=== PATIENT | female | born 1970 | race Caucasian/White ===

== ENCOUNTER 2017-07-19 16:25 | Emergency (ER) | payer SELFPAY ==
[~2017-07-19] VITALS: Ht 165.1 cm; Wt 76.5 kg
[~2017-07-19 16:25] MED LIST: DOXY100C2 PO
[2017-07-19 16:27] VITALS: TEMP 36.5; Ht 165.1 cm; Wt 76.5 kg
[2017-07-19] MEDS ORDERED: KETOROLAC TROMETHAMINE 30 MG/ML VIAL IV STA (16:44)
[2017-07-19 16:57] LABS: BASO % 0.6 %; BASO ABS # 0.06 K/uL (0-0.2); COMPLETE YES; EOS % 1.6 %; HEMATOCRIT 46.6 % (37-47); IG% 0.6 %; LYMPH % 33.6 %; LYMPH ABS # 3.25 K/uL (1.2-3.4); MEAN CELL VOLUME 98.9 fL (80-100); MEAN CORPUSCULAR HEMOGLOBIN 33.3 pg (25-34); MEAN CORPUSCULAR HGB CONC 33.7 g/dl (32-36); MEAN PLATELET VOLUME 9.2 fL (7.4-10.4); MONO % 6.5 %; NEUT % 57.1 %; PLATELET COUNT 254 K/uL (130-400); RED BLOOD COUNT 4.71 M/uL (4.2-5.4); WHITE BLOOD COUNT 9.66 K/uL (4.8-10.8)
[2017-07-19 17:05] LABS: POINT OF CARE TROPONIN I < 0.030 ng/ml (0-0.045)
--- NOTE | 2017-07-19 17:05 | DIAGNOSTIC IMAGING REPORT ---
CHEST ONE VIEW PORTABLE HISTORY: 47 years-old Female CHEST PAIN COMPARISON: Chest radiograph 11/15/2016 TECHNIQUE: Portable upright AP view of the chest FINDINGS: Cardiomediastinal and hilar silhouettes are within normal limits. No pneumothorax, pleural effusion or focal airspace consolidation. No overt pulmonary edema. The bones are grossly intact. IMPRESSION: No acute cardiopulmonary process. The above report was generated using voice recognition software. It may contain grammatical, syntax or spelling errors. Electronically signed by: Eduardo Kebede M.D. 07/19/2017 5:04 PM Dictated Date/Time: 07/19/2017 5:03 PM
[2017-07-19 17:15] LABS: ALT/SGPT 20 U/L (12-78); AST/SGOT 14 U/L (15-37); BLOOD UREA NITROGEN 8 mg/dl (7-18); BUN/CREATININE RATIO 14.1 (10-20); CALCIUM 8.7 mg/dl (8.5-10.1); CARBON DIOXIDE 25 mmol/L (21-32); CHLORIDE 107 mmol/L (98-107); GLUCOSE 79 mg/dl (70-99); POTASSIUM 3.8 mmol/L (3.5-5.1); SODIUM 139 mmol/L (136-145)
[2017-07-19 17:20] LABS: ALKALINE PHOSPHATASE 99 U/L (45-117); CKMB/CK RATIO 1.3 (0-3.0); PREG INTERNAL NEGATIVE QC NEG CLEAR BACKGROUND; PREG INTERNAL POSITIVE QC POS CONTROL LINE
--- NOTE | 2017-07-19 18:50 | EMERGENCY ROOM VISIT NOTE ---
History Report prepared by Jose: Liseth Paz Under the Supervision of: Dr. Mateo Tejada M.D. First contact with patient: 16:31 Chief Complaint: CHEST PAIN Stated Complaint: CHEST HURTS Nursing Triage Summary: Pt reports right sided chest pain x 2 days. No known injury. Right side of neck and back pain. Mild SOB. Lightheaded. Pain described as sharp. Denies calf pain. History of Present Illness The patient is a 47 year old female who presents to the Emergency Room with complaints of intermittent chest pain starting a few days ago. She describes the pain as sharp. She states that each episode lasts a few minutes. The patient notes it is worse when she breathes. The patient complains of shortness of breath and a cough. The patient denies any injury, nausea, vomiting, fever, chance of , being on blood thinners, ever having a stress test, having asthma, and having diabetes. The patient notes a history of blood clots in her leg and an allergy to bee stings. Source of History: patient, spouse/significant other Onset: a few days ago Position: chest Quality: sharp Timing: intermittent Modifying Factors (Worsening): breathing Associated Symptoms: + cough, + SOB, No fevers, No nausea, No vomiting Note: The patient denies any injury, chance of , being on blood thinners, ever having a stress test, having asthma, and having diabetes. Review of Systems See HPI for pertinent positives & negatives. A total of 10 systems reviewed and were otherwise negative. Past Medical & Surgical Medical Problems: (1) Acute bronchitis (2) Arm pain, right (3) Asthma (4) Bee sting allergy (5) Cellulitis of left foot (6) Deep venous thrombosis of lower extremity (7) Diabetes (8) Heart disease (9) Hematuria (10) Hx of blood clots (11) Hypertension (12) Lumbago (13) Right lumbar radiculitis (14) Right tennis elbow (15) Tobacco Use Disorder Surgical Problems: (1) Fracture of mandible Old medical records were reviewed. Nurse's notes were reviewed and I agree with. Family History Blood clots Diabetes mellitus FHx: gallbladder disease FHx: heart disease Hypertension Kidney disease Kidney stones Seizures Social History Smoking Status: Current Every Day Smoker Alcohol Use: occasionally Marital Status: Housing Status: lives with family Occupation Status: employed Current/Historical Medications No Active Prescriptions or Reported Meds Allergies Coded Allergies: BEE STING (Unverified Allergy, Unknown, ., 07/19/17) Latex1 -Allergic Contact Dermititis (Verified Allergy, Unknown, 07/19/17) Physical Exam Vital Signs Date Time Temp Pulse Resp B/P (MAP) Pulse Ox O2 Delivery O2 Flow Rate FiO2 07/19/17 20:43 68 18 106/79 98 07/19/17 18:58 65 16 116/72 97 Room Air 07/19/17 16:27 36.5 83 18 132/83 95 Room Air Physical Exam General: Well developed well nourished in no acute distress, breathing comfortably on room air. Normal speech. Mildly uncomfortable middle aged female. HEENT: Normal cephalic atraumatic. Pupils are equal round and reactive to light. Extraocular movements are intact. Oropharynx is pink with moist mucous membranes. No swelling of the mouth lips or tongue. Neck: Supple with a midline trachea. No meningeal signs or stiffness, no JVD or bruits. No Stridor. Chest: Clear to auscultation bilaterally. No wheezes or rhonchi. No increased work of breathing. Reproducible tenderness in right chest. Heart: regular rate and rhythm. Abdomen: Soft nontender, nondistended without rebound guarding or rigidity. Extremities: No cyanosis clubbing or edema. No calf tenderness or assymetry Spine/Back. Non tender to palpation. No CVA tenderness Skin: Good turgor without rashes. Neurologic exam: Cranial nerves two through 12 are intact. Motor and sensation are intact and symmetrical throughout. Medical Decision & Procedures ER Provider Diagnostic Interpretation: Radiology results as stated below per my review and radiologist interpretation: CHEST ONE VIEW PORTABLE HISTORY: 47 years-old Female CHEST PAIN COMPARISON: Chest radiograph 11/15/2016 TECHNIQUE: Portable upright AP view of the chest FINDINGS: Cardiomediastinal and hilar silhouettes are within normal limits. No pneumothorax, pleural effusion or focal airspace consolidation. No overt pulmonary edema. The bones are grossly intact. IMPRESSION: No acute cardiopulmonary process. The above report was generated using voice recognition software. It may contain grammatical, syntax or spelling errors. Electronically signed by: Eduardo Kebede M.D. 07/19/2017 5:04 PM Dictated Date/Time: 07/19/2017 5:03 PM CHEST FOR PE) ANGIO WITH CT DOSE: 593.78 mGycm HISTORY: 47 years-old Female presents with acute chest pain. TECHNIQUE: Multiple CTA images of the chest were obtained after the intravenous administration of 116 ml Optiray 320. Coronal and sagittal MIPS were obtained from the axial data set and were submitted for review. A dose lowering technique was utilized adhering to the principles of ALARA. COMPARISON: CTA of the chest 05/04/2016 FINDINGS: CTA: There is adequate opacification of the pulmonary arteries to the level of the subsegmental branches without convincing evidence of acute pulmonary embolism. The thoracic aorta is normal in course and caliber without dissection or aneurysm. There is mild degree of mixed plaquing involving the aortic arch without high-grade stenosis.Heart size is normal. CT CHEST: Nodular thyroid is seen without dominant nodule. Mildly prominent 1.3 x 0.8 cm right hilar lymph node is seen, nonspecific and unchanged from comparison. No pathologic adenopathy by CT size criteria. Mild subpleural lucencies at the lung apices and bases are again seen suggesting bleb formation or paraseptal emphysema. No pneumothorax or pleural effusion. There is minimal dependent bibasilar atelectasis. The central airways are patent with minimal mucosal secretions along the thoracic trachea. Gallstones are seen layering within the gallbladder lumen. No CT evidence of acute cholecystitis. Soft tissues are unremarkable. The bones appear intact. IMPRESSION: 1. No acute cardiopulmonary process, specifically no acute aortic pathology or evidence of pulmonary thromboembolic disease. 2. Cholelithiasis without CT evidence of acute cholecystitis. 3. Unchanged subpleural lucencies within the lung apices suggesting bleb formation or mild paraseptal emphysema. The above report was generated using voice recognition software. It may contain grammatical, syntax or spelling errors. Electronically signed by: Eduardo Kebede M.D. 07/19/2017 8:14 PM Dictated Date/Time: 07/19/2017 8:05 PM Laboratory Results 07/19/17 16:45 Red Blood Count 4.71, Mean Corpuscular Volume 98.9, Mean Corpuscular Hemoglobin 33.3, Mean Corpuscular Hemoglobin Concent 33.7, Mean Platelet Volume 9.2, Neutrophils (%) (Auto) 57.1, Lymphocytes (%) (Auto) 33.6, Monocytes (%) (Auto) 6.5, Eosinophils (%) (Auto) 1.6, Basophils (%) (Auto) 0.6, Neutrophils # (Auto) 5.51, Lymphocytes # (Auto) 3.25, Monocytes # (Auto) 0.63, Eosinophils # (Auto) 0.15, Basophils # (Auto) 0.06 07/19/17 16:45 Test 07/19/17 16:45 07/19/17 16:47 White Blood Count 9.66 K/uL (4.8-10.8) Red Blood Count 4.71 M/uL (4.2-5.4) Hemoglobin 15.7 g/dL (12.0-16.0) Hematocrit 46.6 % (37-47) Mean Corpuscular Volume 98.9 fL (80-100) Mean Corpuscular Hemoglobin 33.3 pg (25-34) Mean Corpuscular Hemoglobin Concent 33.7 g/dl (32-36) Platelet Count 254 K/uL (130-400) Mean Platelet Volume 9.2 fL (7.4-10.4) Neutrophils (%) (Auto) 57.1 % Lymphocytes (%) (Auto) 33.6 % Monocytes (%) (Auto) 6.5 % Eosinophils (%) (Auto) 1.6 % Basophils (%) (Auto) 0.6 % Neutrophils # (Auto) 5.51 K/uL (1.4-6.5) Lymphocytes # (Auto) 3.25 K/uL (1.2-3.4) Monocytes # (Auto) 0.63 K/uL (0.11-0.59) Eosinophils # (Auto) 0.15 K/uL (0-0.5) Basophils # (Auto) 0.06 K/uL (0-0.2) RDW Standard Deviation 46.6 fL (36.4-46.3) RDW Coefficient of Variation 12.8 % (11.5-14.5) Immature Granulocyte % (Auto) 0.6 % Immature Granulocyte # (Auto) 0.06 K/uL (0.00-0.02) Anion Gap 7.0 mmol/L (3-11) Est Creatinine Clear Calc Drug Dose 118.6 ml/min Estimated GFR () 125.8 Estimated GFR (Non- 108.5 BUN/Creatinine Ratio 14.1 (10-20) Calcium Level 8.7 mg/dl (8.5-10.1) Total Bilirubin 0.3 mg/dl (0.2-1) Direct Bilirubin < 0.1 mg/dl (0-0.2) Aspartate Amino Transf (AST/SGOT) 14 U/L (15-37) Alanine Aminotransferase (ALT/SGPT) 20 U/L (12-78) Alkaline Phosphatase 99 U/L (45-117) Total Creatine Kinase 60 U/L (26-192) Creatine Kinase MB 0.8 ng/ml (0.5-3.6) Creatine Kinase MB Ratio 1.3 (0-3.0) Total Protein 7.8 gm/dl (6.4-8.2) Albumin 3.8 gm/dl (3.4-5.0) Lipase 122 U/L (73-393) Human Chorionic Gonadotropin, Qual NEG (NEG) Bedside D-Dimer 241 ng/mlFEU (0-450) Bedside Troponin I < 0.030 ng/ml (0-0.045) Laboratory studies as stated above per my review. Medications Administered Medications (Trade) Dose Ordered Sig/Tesfaye Route Start Time Stop Time Status Last Admin Dose Admin Ketorolac Tromethamine (Toradol Inj) 30 mg NOW STAT IV 07/19/17 16:44 07/19/17 16:46 DC 07/19/17 17:21 30 MG ECG Indication: chest pain Rate (beats per minute): 73 Rhythm: normal sinus Findings: no acute ischemic change, no ectopy Comparison ECG Date: 09/15/2016 Change: no significant change ED Course 1638: Past medical records reviewed. The patient was evaluated in room C2B, and a complete history and physical examination were performed. 1644: Ordered Toradol Inj 30 mg IV. 1735: I reevaluated the patient and she states that the Toradol helped. 180: I reevaluated the patient and explained the risks and benefits of CT. She would like to proceed with a CT. 2024: Upon reevaluation, the patient is resting comfortably. I discussed the results and treatment plan with her. She verbalized agreement of the treatment plan. The patient was discharged home. Medical Decision Differential diagnoses include PE, pneumonia, acute coronary syndrome, costochondritis, electrolyte abnormality, metabolic abnormality. This patient comes in as described above. She's had right sided chest pain and it is pleuritic and reproducible. She has a history of this and was seen for similar episode last summer. IV access established and she was given Toradol 30 mg IV and this seemed to help. EKG does not suggest acute coronary syndrome or arrhythmia. Her troponin is not elevated. I do this likely cardiac her symptoms are atypical limited on since yesterday with a normal EKG and troponin today. Chest x-ray does not show pneumonia or pneumothorax or CHF. Her d- dimer was negative and this makes PE highly unlikely however she is a little bit higher risk given the fact that she has had a history of a DVT. I explained the risks and benefits of a CT of her chest. The patient and her freely consented. There is no evidence of PE or other acute pathology explaining her symptoms. She has of gallstones but no acute cholecystitis and clinically does not have symptoms to suggest that. I think this is musculoskeletal/costochondritis it is reproducible. She should use anti- inflammatory she should rest and drink plenty fluids return if: increasing pain , shortness of breath, worsening ofsymptoms, any new problems or concerns. I recommend that she follow up with her regular doctor this week for recheck. Impression Primary Impression: Right-sided chest pain Additional Impression: Costochondritis Scribe Attestation The scribe's documentation has been prepared under my direction and personally reviewed by me in its entirety. I confirm that the note above accurately reflects all work, treatment, procedures, and medical decision making performed by me. Departure Information Dispostion Home / Self-Care Prescriptions No Active Prescriptions or Reported Meds Referrals No Doctor, Assigned (PCP) Forms Call Back Authorization, HOME CARE DOCUMENTATION FORM, IMPORTANT VISIT INFORMATION Patient Instructions My [facility] Additional Instructions Rest Drink plenty of fluids Use Ibuprofen 400 mg every 6 hours as needed. Take with food REturn if: worsening of symptoms, fever, increasing pain, shortness of breath, any new problems or concerns Follow-up with your doctor this week for recheck Problem Qualifiers
[2017-07-19] MEDS ORDERED: OPTIRAY 320 IV PRN (19:15)
--- NOTE | 2017-07-19 20:15 | DIAGNOSTIC IMAGING REPORT ---
(CHEST FOR PE) ANGIO WITH CT DOSE: 593.78 mGycm HISTORY: 47 years-old Female presents with acute chest pain. TECHNIQUE: Multiple CTA images of the chest were obtained after the intravenous administration of 116 ml Optiray 320. Coronal and sagittal MIPS were obtained from the axial data set and were submitted for review. A dose lowering technique was utilized adhering to the principles of ALARA. COMPARISON: CTA of the chest 05/04/2016 FINDINGS: CTA: There is adequate opacification of the pulmonary arteries to the level of the subsegmental branches without convincing evidence of acute pulmonary embolism. The thoracic aorta is normal in course and caliber without dissection or aneurysm. There is mild degree of mixed plaquing involving the aortic arch without high-grade stenosis.Heart size is normal. CT CHEST: Nodular thyroid is seen without dominant nodule. Mildly prominent 1.3 x 0.8 cm right hilar lymph node is seen, nonspecific and unchanged from comparison. No pathologic adenopathy by CT size criteria. Mild subpleural lucencies at the lung apices and bases are again seen suggesting bleb formation or paraseptal emphysema. No pneumothorax or pleural effusion. There is minimal dependent bibasilar atelectasis. The central airways are patent with minimal mucosal secretions along the thoracic trachea. Gallstones are seen layering within the gallbladder lumen. No CT evidence of acute cholecystitis. Soft tissues are unremarkable. The bones appear intact. IMPRESSION: 1. No acute cardiopulmonary process, specifically no acute aortic pathology or evidence of pulmonary thromboembolic disease. 2. Cholelithiasis without CT evidence of acute cholecystitis. 3. Unchanged subpleural lucencies within the lung apices suggesting bleb formation or mild paraseptal emphysema. The above report was generated using voice recognition software. It may contain grammatical, syntax or spelling errors. Electronically signed by: Eduardo Kebede M.D. 07/19/2017 8:14 PM Dictated Date/Time: 07/19/2017 8:05 PM
[2017-07-19 20:43] VITALS: BP 106/79; PULSE 68; O2SAT 98
== END 2017-07-19 20:47 | disposition home or self-care (01) ==
LOC: C.EDB 16:25 → C.EDC 20:47
DX: R07.9 Chest pain, unspecified (principal); M94.0 Chondrocostal junction syndrome [Tietze]; Z86.718 Personal history of other venous thrombosis and embolism; J45.909 Unspecified asthma, uncomplicated; E11.9 Type 2 diabetes mellitus without complications; I11.9 Hypertensive heart disease without heart failure; M54.16 Radiculopathy, lumbar region; F17.210 Nicotine dependence, cigarettes, uncomplicated; Z82.49 Family history of ischemic heart disease and other diseases of the circulatory system; Z83.79 Family history of other diseases of the digestive system; Z84.1 Family history of disorders of kidney and ureter

== ENCOUNTER 2018-01-18 11:23 | Emergency (ER) | payer SELFPAY ==
[~2018-01-18] VITALS: Ht 165.1 cm; Wt 76.2 kg
[2018-01-18 11:34] VITALS: TEMP 36.4; Ht 165.1 cm; Wt 76.2 kg
[2018-01-18] MEDS ORDERED: SODIUM CHLORIDE 0.9% 1000ML 1,000 ML IV STA (12:09)
[2018-01-18 12:40] LABS: BASO % 0.5 %; BASO ABS # 0.07 K/uL (0-0.2); EOS % 0.7 %; EOS ABS # 0.09 K/uL (0-0.5); HEMATOCRIT 46.4 % (37-47); HEMOGLOBIN 15.6 g/dL (12.0-16.0); IG# 0.05 K/uL (0.00-0.02); LYMPH % 15.8 %; LYMPH ABS # 2.07 K/uL (1.2-3.4); MEAN CELL VOLUME 98.3 fL (80-100); MEAN CORPUSCULAR HEMOGLOBIN 33.1 pg (25-34); MEAN CORPUSCULAR HGB CONC 33.6 g/dl (32-36); MEAN PLATELET VOLUME 9.5 fL (7.4-10.4); MONO % 6.5 %; MONO ABS # 0.85 K/uL (0.11-0.59); NEUT % 76.1 %; NEUT ABS # 10.01 K/uL (1.4-6.5); PLATELET COUNT 257 K/uL (130-400); RED CELL DISTRIBUTION WIDTH CV 12.8 % (11.5-14.5); RED CELL DISTRIBUTION WIDTH SD 46.2 fL (36.4-46.3); WHITE BLOOD COUNT 13.14 K/uL (4.8-10.8)
[2018-01-18 12:47] LABS: PTT PATIENT 26.1 SECONDS (21.0-31.0)
[2018-01-18 12:54] LABS: ALBUMIN 4.1 gm/dl (3.4-5.0); CALCIUM 8.9 mg/dl (8.5-10.1); CREATININE 0.65 mg/dl (0.60-1.20)
[2018-01-18 12:56] LABS: TOTAL PROTEIN 7.9 gm/dl (6.4-8.2)
--- NOTE | 2018-01-18 12:58 | DIAGNOSTIC IMAGING REPORT ---
ABD/PELVIS WITHOUT FOR STONE CLINICAL HISTORY: 47 years-old Female presenting with right flank pain, hematuria. TECHNIQUE: Multidetector CT of the abdomen and pelvis was performed without the use of intravenous contrast. IV contrast: None. A dose lowering technique was used consistent with the principles of ALARA (as low as reasonably achievable). COMPARISON: None. CT DOSE (mGy.cm): The estimated cumulative dose is 851.08 mGycm. FINDINGS: Manager Licensing topogram: Unremarkable. Lung bases: Minimal basilar opacities, likely atelectasis. Normal heart size. No pericardial or pleural effusion. Liver: Normal morphology. Normal density. Biliary: No gross biliary ductal dilatation allowing for noncontrast technique. Gallbladder contains gallstones. Pancreas: Normal noncontrast appearance. Spleen: Normal noncontrast appearance. Adrenal glands: Normal noncontrast appearance. Kidneys and ureters: Normal noncontrast appearance. No nephrolithiasis. No hydronephrosis. Normal ureters. Bladder: Polypoid mass arising from the right posterior lateral wall measures up to 3.7 cm in diameter. This does not appear to invade beyond the bladder wall. This is incompletely characterized without contrast. Pelvic organs: Normal noncontrast appearance. Dominant follicle noted in the left ovary. Bowel: Diverticulosis of the mid to distal sigmoid colon. The appendix is normal. No bowel obstruction. Peritoneal cavity: No free fluid or intraperitoneal gas. Lymph nodes: No gross lymphadenopathy allowing for noncontrast technique. Vasculature: Atherosclerosis of the normal caliber abdominal aorta. Abdominal wall: Small fat-containing umbilical hernia. Musculoskeletal: Normal. IMPRESSION: 1. Findings highly suspicious for bladder neoplasm. The polypoid mass along the right posterior lateral aspect does not appear to invade beyond the bladder wall. No lymphadenopathy allowing for noncontrast technique. 2. No nephrolithiasis or hydronephrosis. The report will be called/faxed according to standard departmental protocol. Electronically signed by: Naveen Erazo M.D. 01/18/2018 12:57 PM Dictated Date/Time: 01/18/2018 12:50 PM
[2018-01-18] MEDS ORDERED: CEFTRIAXONE SOD INJ 1 GM ADDVIAL IV STA (13:48)
[2018-01-18] MEDS ORDERED: SULF800T23 PO (14:44)
--- NOTE | 2018-01-18 14:45 | EMERGENCY ROOM VISIT NOTE ---
History First contact with patient: 11:58 Chief Complaint: HEMATURIA Stated Complaint: PEEING BLOOD AND CLOTS Nursing Triage Summary: urinated blood and blood clots started three days ago with burning urgency and dribbling History of Present Illness The patient is a 47 year old female who presents to the Emergency Room with complaints of hematuria 3 days. The patient states she has been dealing with urinary tract infection symptoms including urinary frequency, urinary hesitancy , and dysuria for approximately 1 week. She states 3 days ago, she noticed that she began peeing blood and does admit to passing clots. She does have a history of kidney stones which have presented similarly with hematuria. She denies any fever, but admits to chills. She admits to some right flank pain, but denies any significant back or abdominal pain. The patient has been taking Tylenol intermittently for discomfort without significant improvement in symptoms. She does not have a primary care provider, nor has she seen a urologist. The patient does admit to smoking approximately 1 pack of cigarettes per day. She denies any weakness, numbness or tingling in her lower extremities, recent falls, back injury, abdominal injury, or other concerning symptoms. Review of Systems A complete 10 point review of systems was reviewed with the patient with pertinent positives and negatives as per history of present illness. All else were negative. Past Medical/Surgical History Medical Problems: (1) Acute bronchitis (2) Arm pain, right (3) Asthma (4) Bee sting allergy (5) Cellulitis of left foot (6) Deep venous thrombosis of lower extremity (7) Diabetes (8) Heart disease (9) Hematuria (10) Hx of blood clots (11) Hypertension (12) Lumbago (13) Right lumbar radiculitis (14) Right tennis elbow (15) Tobacco Use Disorder Surgical Problems: (1) Fracture of mandible Family History Blood clots Diabetes mellitus FHx: gallbladder disease FHx: heart disease Hypertension Kidney disease Kidney stones Seizures Social History Smoking Status: Current Every Day Smoker Alcohol Use: occasionally Marital Status: Housing Status: lives with family Occupation Status: employed Current/Historical Medications Scheduled Sulfa/Trimethoprim (Bactrim Ds 800MG/160MG), 1 TAB PO BID Physical Exam Vital Signs Date Time Temp Pulse Resp B/P (MAP) Pulse Ox O2 Delivery O2 Flow Rate FiO2 01/18/18 15:02 70 16 142/83 100 01/18/18 13:31 80 18 135/82 100 Room Air 01/18/18 11:34 36.4 95 18 158/92 98 Room Air Physical Exam VITALS: Vitals are noted on the nurse's note and reviewed by myself. Vital signs stable. GENERAL: This is a 47-year-old white female, in no acute distress, nondiaphoretic, well-developed well-nourished. SKIN: The skin was without rashes, erythema, edema, or bruising. There is no tenting of the skin. Capillary reflex less than 2 seconds. HEAD: Normocephalic atraumatic. EARS: External auditory canals clear, tympanic membranes pearly loco without erythema or effusion bilaterally. EYES: Pupils equal round and reactive to light and accommodation. Conjunctivae without injection, sclerae without icterus. Extraocular movements intact. NOSE: Patent, turbinates without inflammation or discharge. No sinus tenderness. MOUTH: Mucous membranes moist. Tonsils are not enlarged. Pharynx without erythema or exudate. Uvula midline. Airway patent. Tongue does not deviate. NECK: Supple without nuchal rigidity. No lymphadenopathy. No thyromegaly. Cervical spine is nontender. No JVD. HEART: Regular rate and rhythm without murmurs gallops or rubs. LUNGS: Clear to auscultation bilaterally without wheezes, rales or rhonchi. No dullness to percussion. No retractions or accessory muscle use. ABDOMEN: Positive bowel sounds x 4. Normal tympanic percussion. Mild suprapubic and right flank tenderness on palpation. The abdomen was otherwise soft, nontender, without masses or organomegaly. Anderson sign negative. No guarding or rebound tenderness. MUSCULOSKELETAL: No muscle atrophy, erythema, or edema noted. Full range of motion without joint tenderness in all extremities. No tenderness to palpation. Normal gait. Strength 5/5 throughout. NEURO: Patient was alert and oriented to person place and time. Normal sensation to light and sharp touch. Deep tendon reflexes 2+ throughout. No focal neurological deficits. Medical Decision & Procedures ER Provider Diagnostic Interpretation: ABD/PELVIS WITHOUT FOR STONE CLINICAL HISTORY: 47 years-old Female presenting with right flank pain, hematuria. TECHNIQUE: Multidetector CT of the abdomen and pelvis was performed without the use of intravenous contrast. IV contrast: None. A dose lowering technique was used consistent with the principles of ALARA (as low as reasonably achievable). COMPARISON: None. CT DOSE (mGy.cm): The estimated cumulative dose is 851.08 mGycm. FINDINGS: Newspaper Writer topogram: Unremarkable. Lung bases: Minimal basilar opacities, likely atelectasis. Normal heart size. No pericardial or pleural effusion. Liver: Normal morphology. Normal density. Biliary: No gross biliary ductal dilatation allowing for noncontrast technique. Gallbladder contains gallstones. Pancreas: Normal noncontrast appearance. Spleen: Normal noncontrast appearance. Adrenal glands: Normal noncontrast appearance. Kidneys and ureters: Normal noncontrast appearance. No nephrolithiasis. No hydronephrosis. Normal ureters. Bladder: Polypoid mass arising from the right posterior lateral wall measures up to 3.7 cm in diameter. This does not appear to invade beyond the bladder wall. This is incompletely characterized without contrast. Pelvic organs: Normal noncontrast appearance. Dominant follicle noted in the left ovary. Bowel: Diverticulosis of the mid to distal sigmoid colon. The appendix is normal. No bowel obstruction. Peritoneal cavity: No free fluid or intraperitoneal gas. Lymph nodes: No gross lymphadenopathy allowing for noncontrast technique. Vasculature: Atherosclerosis of the normal caliber abdominal aorta. Abdominal wall: Small fat-containing umbilical hernia. Musculoskeletal: Normal. IMPRESSION: 1. Findings highly suspicious for bladder neoplasm. The polypoid mass along the right posterior lateral aspect does not appear to invade beyond the bladder wall. No lymphadenopathy allowing for noncontrast technique. 2. No nephrolithiasis or hydronephrosis. The report will be called/faxed according to standard departmental protocol. Electronically signed by: Naveen Erazo M.D. 01/18/2018 12:57 PM Dictated Date/Time: 01/18/2018 12:50 PM Laboratory Results 01/18/18 12:26 Red Blood Count 4.72, Mean Corpuscular Volume 98.3, Mean Corpuscular Hemoglobin 33.1, Mean Corpuscular Hemoglobin Concent 33.6, Mean Platelet Volume 9.5, Neutrophils (%) (Auto) 76.1, Lymphocytes (%) (Auto) 15.8, Monocytes (%) (Auto) 6.5, Eosinophils (%) (Auto) 0.7, Basophils (%) (Auto) 0.5, Neutrophils # (Auto) 10.01, Lymphocytes # (Auto) 2.07, Monocytes # (Auto) 0.85, Eosinophils # (Auto) 0.09, Basophils # (Auto) 0.07 01/18/18 12:26 Test 01/18/18 11:45 01/18/18 12:26 Urine Color BROWN Urine Appearance CLOUDY (CLEAR) Urine pH 6.0 (4.5-7.5) Urine Specific [place] 1.010 (1.000-1.030) Urine Protein 1+ (NEG) Urine Glucose (UA) NEG (NEG) Urine Ketones NEG (NEG) Urine Occult Blood 3+ (NEG) Urine Nitrite POS (NEG) Urine Bilirubin NEG (NEG) Urine Urobilinogen NEG (NEG) Urine Leukocyte Esterase TRACE (NEG) Urine RBC >30 /hpf (0-4) Urine WBC 10-30 /hpf (0-5) Urine Epithelial Cells >30 /lpf (0-5) Urine Bacteria 2+ (NEG) Urine Test NEG (NEG) White Blood Count 13.14 K/uL (4.8-10.8) Red Blood Count 4.72 M/uL (4.2-5.4) Hemoglobin 15.6 g/dL (12.0-16.0) Hematocrit 46.4 % (37-47) Mean Corpuscular Volume 98.3 fL (80-100) Mean Corpuscular Hemoglobin 33.1 pg (25-34) Mean Corpuscular Hemoglobin Concent 33.6 g/dl (32-36) Platelet Count 257 K/uL (130-400) Mean Platelet Volume 9.5 fL (7.4-10.4) Neutrophils (%) (Auto) 76.1 % Lymphocytes (%) (Auto) 15.8 % Monocytes (%) (Auto) 6.5 % Eosinophils (%) (Auto) 0.7 % Basophils (%) (Auto) 0.5 % Neutrophils # (Auto) 10.01 K/uL (1.4-6.5) Lymphocytes # (Auto) 2.07 K/uL (1.2-3.4) Monocytes # (Auto) 0.85 K/uL (0.11-0.59) Eosinophils # (Auto) 0.09 K/uL (0-0.5) Basophils # (Auto) 0.07 K/uL (0-0.2) RDW Standard Deviation 46.2 fL (36.4-46.3) RDW Coefficient of Variation 12.8 % (11.5-14.5) Immature Granulocyte % (Auto) 0.4 % Immature Granulocyte # (Auto) 0.05 K/uL (0.00-0.02) Prothrombin Time 10.7 SECONDS (9.0-12.0) Prothromb Time International Ratio 1.0 (0.9-1.1) Activated Partial Thromboplast Time 26.1 SECONDS (21.0-31.0) Partial Thromboplastin Ratio 1.0 Anion Gap 6.0 mmol/L (3-11) Est Creatinine Clear Calc Drug Dose 109.3 ml/min Estimated GFR () 122.5 Estimated GFR (Non- 105.7 BUN/Creatinine Ratio 18.2 (10-20) Calcium Level 8.9 mg/dl (8.5-10.1) Total Bilirubin 0.5 mg/dl (0.2-1) Aspartate Amino Transf (AST/SGOT) 25 U/L (15-37) Alanine Aminotransferase (ALT/SGPT) 31 U/L (12-78) Alkaline Phosphatase 105 U/L (45-117) Total Protein 7.9 gm/dl (6.4-8.2) Albumin 4.1 gm/dl (3.4-5.0) Globulin 3.8 gm/dl (2.5-4.0) Albumin/Globulin Ratio 1.1 (0.9-2) Medications Administered Medications (Trade) Dose Ordered Sig/Tesfaye Route Start Time Stop Time Status Last Admin Dose Admin Sodium Chloride 1,000 ml @ 999 mls/hr Q1H1M STAT IV 01/18/18 12:09 01/18/18 13:09 DC 01/18/18 12:09 999 MLS/HR Ceftriaxone Sodium (Rocephin Inj) 1 gm NOW STAT IV 01/18/18 13:48 01/18/18 13:49 DC 01/18/18 14:08 1 GM ED Course The patient was seen and evaluated as above. IV access obtained, labs drawn. Urine dipstick performed. The patient was given 1 L normal saline solution IV. I did offer pain medication, the patient declines. Due to the patient's symptoms and history of nephrolithiasis, CT abdomen/pelvis ordered and performed. This was reviewed by myself and radiologist as above. I discussed these findings with the patient at bedside. The patient was given 1 g IV ceftriaxone. I did speak with Consuelo Burton from urology regarding the findings. She states she is able to see the patient in clinic tomorrow for follow-up. She was agreeable to IV Rocephin and discharged on Bactrim. I discussed follow-up care with the patient at bedside. She does not have insurance, nor does she have a primary care provider. Case management was involved to help get the patient established with these services. Please see her documentation. The patient was reassessed. She is feeling better. Discharge instructions reviewed, the patient was discharged home in good condition. Medical Decision This is a 47-year-old female smoker who presents to the emergency department today complaining of hematuria. She has had UTI symptoms for approximately 1 week. She states 3 days ago, she noticed pain blood and passing clots. She does have history of kidney stones which have presented similarly. The patient does not have any significant tenderness to palpation, but does have some very mild suprapubic and right flank pain. She does not have known history of malignancy and has only had 1 or 2 urinary tract infections in the past. Labs were significant for leukocytosis of 13,000. PT, INR were normal. Patient's urinalysis was positive for 3+ blood, nitrites and 2+ bacteria, and I do suspect urinary tract infection. The patient's renal and hepatic function as well as electrolytes were normal. Patient's CT scan was concerning for polypoid mass in the bladder. I did speak with urology who is willing to follow -up with patient outpatient regarding this finding. The patient will be treated with IV antibiotics here and discharged on oral antibiotics. Urology was on board with this plan. I did speak with Dr. Catalan throughout the course of the patient's visit. Etiologies such as renal colic, appendicitis, diverticulitis, mesenteric ischemia, aortic pathology, infections, inflammatory bowel disease, PUD, biliary pathology, UTI, malignancy, pyelonephritis, as well as others were entertained. Medication Reconcilliation Current Medication List: was personally reviewed by me Blood Pressure Screening Patient's blood pressure: Elevated blood pressure Blood pressure disposition: Elevated BP felt to be situational Impression Primary Impression: Hematuria Additional Impressions: UTI (urinary tract infection) Bladder mass Departure Information Dispostion Home / Self-Care Condition GOOD Prescriptions Sulfa/Trimethoprim (Bactrim Ds 800MG/160MG) Tab 1 TAB PO BID for 10 Days, #20 TAB Prov: Debra Arnold PA-C 01/18/18 Referrals No Doctor, Assigned (PCP) Patient Instructions ED UTI Cystitis Female, My [facility] Additional Instructions You have been treated in the Emergency Department for a Urinary Tract Infection (UTI) and hematuria (blood in your urine). As discussed, CT scan of the abdomen /pelvis did reveal a mass in the bladder. This is suspicious for malignancy. You were established with urology and have an appointment for tomorrow. Please keep this appointment for consult. You have been prescribed Bactrim to be taken twice daily 10 days. This is an antibiotic. All antibiotics have the potential to cause diarrhea. Stop this medication and contact a medical provider if you were to develop any significant adverse side effects including: wheezing, shortness of breath, passing out, vomiting, or a diffuse rash. Always take antibiotics as directed and COMPLETE the ENTIRE course regardless of the improvement of your symptoms. Drink plenty of water and stay well hydrated. As with any trip to the Emergency Department, you should follow-up with your Primary Care Provider from today's visit. Return to the emergency department if your symptoms persist despite treatment plan outlined above or if the following symptoms occur: increased fevers, chills , low back pain, nausea/vomiting, or worsening blood in your urine. Problem Qualifiers Primary Impression: Hematuria Hematuria type: gross Qualified Codes: R31.0 - Gross hematuria Additional Impressions: UTI (urinary tract infection) Urinary tract infection type: acute cystitis Hematuria presence: with hematuria Qualified Codes: N30.01 - Acute cystitis with hematuria
[2018-01-18 15:02] VITALS: BP 142/83; PULSE 70; O2SAT 100
--- NOTE | 2018-01-20 12:53 | Pharmacy Progress Note ---
ED Pharmacist Culture FollowUp Date of Service: Jan 20, 2018. Patient was sent home with a prescription for Bactrim DS 1 PO BID x 10 days, which should cover the E coli growing from the patient's URINE culture.
== END 2018-01-18 14:59 | disposition home or self-care (01) ==
LOC: C.EDB 11:24 → C.EDC 14:59
DX: N30.01 Acute cystitis with hematuria (principal); N32.9 Bladder disorder, unspecified; J45.909 Unspecified asthma, uncomplicated; E11.9 Type 2 diabetes mellitus without complications; I11.9 Hypertensive heart disease without heart failure; F17.200 Nicotine dependence, unspecified, uncomplicated; Z86.718 Personal history of other venous thrombosis and embolism; Z83.3 Family history of diabetes mellitus; Z83.79 Family history of other diseases of the digestive system; Z82.49 Family history of ischemic heart disease and other diseases of the circulatory system; Z84.1 Family history of disorders of kidney and ureter; Z82.0 Family history of epilepsy and other diseases of the nervous system; Z91.030 Bee allergy status

== ENCOUNTER 2018-01-21 11:44 | Day surgery (SDC) | payer SELFPAY ==
[~2018-01-21] VITALS: Ht 165.1 cm; Wt 77.2 kg
[~2018-01-21 11:44] MED LIST changes: +ATROPINE SULFATE 0.1 MG/ML 5ML SYR IV PRN; +CIPROFLOXACIN / D5W 400 MG IV SCH; -DOXY100C2 PO; +EpHEDrine SULFATE INJ 50 MG/ML AMP IV PRN; +HYDROmorphone INJ 2 MG/ML SYR/VIAL IV PRN; +LACTATED RINGER'S 1000ML 1,000 ML IV SCH; +MITOMYCIN FOR INJ 40 MG in SYRINGE 40 ML IR SCH; +ONDANSETRON INJ 2 MG/ML 2 ML VIAL IV PRN; +PHENYLEPHRINE 100MCG/ML 5ML SYR IV PRN; +SULF800T23 PO
[2018-01-21 12:40] VITALS: BP 138/77; PULSE 70; TEMP 36.6; O2SAT 99; Ht 165.1 cm; Wt 77.2 kg
--- NOTE | 2018-01-21 13:09 | History & Physical Bridge Note ---
H&P Re-Evaluation Bridge Note: I have examined the patient, reviewed the History & Physical and in the interval since the performance of the History & Physical I have noted the following changes of clinical significance: No changes noted
[2018-01-21] MEDS ORDERED: DEXAMETHASONE SOD INJ 4 MG/ML VIAL ONE (15:15)
[2018-01-21] MEDS ORDERED: MIDAZOLAM HCL 1 MG/ML 2ML VIAL ONE (15:15)
[2018-01-21] MEDS ORDERED: ONDANSETRON INJ 2 MG/ML 2 ML VIAL ONE (15:15)
[2018-01-21] MEDS ORDERED: FENTANYL CITRATE INJ 50 MCG/1 ML 2 ML VIAL ONE ×2 (15:15→16:45)
[2018-01-21] MEDS ORDERED: LIDOCAINE HCL 2% 2 ML VIAL (20MG/ML) ONE (15:15)
[2018-01-21] MEDS ORDERED: PROPOFOL IV EMULSION 10 MG/ML 20 ML VIAL IV ONE (15:15)
[2018-01-21] MEDS ORDERED: DOCU-94 PO (15:47)
[2018-01-21] MEDS ORDERED: OXYC-57 PO (15:47)
--- NOTE | 2018-01-21 15:52 | Discharge Instructions ---
Discharge Instructions Date of Service Jan 21, 2018. Admission Reason for Admission: Bladder Tumor Discharge Discharge Diagnosis / Problem: Bladder tumor s/p resection Discharge Goals Goal(s): Decrease discomfort, Improve disease control, Therapeutic intervention Activity Recommendations Activity Limitations: as noted below Lifting Limitations: no more than 25 pounds, gradually increase as tolerated Exercise/Sports Limitations: rest today, gradually increase as tolerated May Resume Sexual Activity: after two weeks Shower/Bathe: no limitations Driving or Machine Use: resume 1 day after discharge (Do not drive while taking narcotics. ) . Instructions / Follow-Up Instructions / Follow-Up Catheter removal in [place] Office ThuJan 25 at 9 AM. Follow-up appointment Feb 03, at 12:50 PM for discussion of pathology. Current Hospital Diet Patient's current hospital diet: Discharge Diet Recommended Diet: Regular Diet (good fluid intake) Procedures Procedures Performed: Transurethral resection of bladder tumor, Instillation of Mitomycin C Pending Studies Studies pending at discharge: yes List of pending studies: Bladder tumor pathology Medical Emergencies . Who to Call and When: Medical Emergencies: If at any time you feel your situation is an emergency, please call 911 immediately. . Non-Emergent Contact Non-Emergency issues call your: Urologist Call Non-Emergent contact if: temperature is above 101.5, your pain is not controlled, your pain is worsening, your pain is unusual for you, your pain is concerning you, you have any medication questions . . "Provider Documentation" section prepared by Consuelo Burton. . [place] Drug Monitoring Program Search Results: patient reviewed within database, no issues identified
[2018-01-21] MEDS ORDERED: BELLADONNA/OPIUM SUPP 60 MG SUPP PR ONE ×2 (16:14→16:31)
--- NOTE | 2018-01-21 16:20 | [facility] Post Operative Brief Note ---
Immediate Operative Summary Operative Date Jan 21, 2018. Pre-Operative Diagnosis Bladder tumor Post-Operative Diagnosis >6 cm bladder tumor Procedure(s) Performed Urethral Dilation,Transurethral Resection Bladder Tumor; Instillation of Mitomycin C Surgeon Dr Jamie Villasenor Supervisor Laboratory Surgeon(s) none Estimated Blood Loss 30 ml Findings Consistent with Post-Op Diagnosis Specimens a. Right sided bladder tumor Drains 18 fr mcgowan, 10 cc H2O Anesthesia Type General Complication(s) none Disposition Accompanied Pt To Recover: no Disposition: Recovery Room / PACU
[2018-01-21] MEDS ORDERED: PHENAZOPYRIDINE HCL 200 MG TAB PO PRN (16:30)
[2018-01-21] MEDS ORDERED: OXYCODONE/ACETAMINOPHEN 5-325 TAB PO PRN ×2 (16:30)
[2018-01-21] MEDS ORDERED: NURSING VERBAL MED ORDER ONE (16:45)
[2018-01-21] MEDS ORDERED: FENTANYL CITRATE INJ 50 MCG/1 ML 2 ML VIAL IV PRN (17:15)
[2018-01-21 17:20] VITALS: BP 140/90; PULSE 69; TEMP 36.6; O2SAT 97
--- NOTE | 2018-01-21 17:45 | Anesthesiology Progress Note ---
Anesthesia Post Op Note Date & Time Jan 21, 2018 at 17:45 Vital Signs Pain Intensity: 1 Vital Signs Past 12 Hours Date Time Temp Pulse Resp B/P (MAP) Pulse Ox O2 Delivery O2 Flow Rate FiO2 01/21/18 17:20 36.6 69 18 140/90 97 Oxymask 01/21/18 17:08 37.0 01/21/18 17:08 58 12 01/21/18 17:08 56 12 97 01/21/18 17:06 124/77 01/21/18 17:03 62 13 96 01/21/18 17:03 65 13 01/21/18 17:01 131/76 01/21/18 16:58 71 19 95 01/21/18 16:58 70 19 01/21/18 16:57 60 18 01/21/18 16:57 61 18 96 01/21/18 16:56 136/75 01/21/18 16:52 65 18 01/21/18 16:52 65 18 99 01/21/18 16:51 142/82 01/21/18 16:47 60 19 01/21/18 16:47 59 19 100 01/21/18 16:46 136/83 01/21/18 16:45 67 19 01/21/18 16:45 65 19 100 01/21/18 16:41 133/82 01/21/18 16:40 65 19 01/21/18 16:40 65 19 100 01/21/18 16:39 67 16 01/21/18 16:39 66 16 100 01/21/18 16:36 124/81 01/21/18 16:34 70 22 100 01/21/18 16:34 68 22 01/21/18 16:31 136/83 01/21/18 16:30 135/82 01/21/18 16:29 67 17 100 01/21/18 16:29 69 17 01/21/18 16:29 37.1 71 16 135/82 100 Oxymask 10 01/21/18 12:40 36.6 70 18 138/77 (97) 99 Room Air Notes Mental Status: alert / awake / arousable, participated in evaluation Pt Amnestic to Procedure: Yes Nausea / Vomiting: adequately controlled Pain: adequately controlled Airway Patency, RR, SpO2: stable & adequate BP & HR: stable & adequate Hydration State: stable & adequate Anesthetic Complications: no major complications apparent
[2018-01-21 17:50] VITALS: BP 126/77; PULSE 60; TEMP 36.6; O2SAT 95
[2018-01-21 18:20] VITALS: BP 112/75; PULSE 56; TEMP 36.6; O2SAT 98
--- NOTE | 2018-01-21 22:39 | OPERATIVE REPORT ---
DATE OF OPERATION: 01/21/2018 PREOPERATIVE DIAGNOSIS: Bladder tumor. POSTOPERATIVE DIAGNOSES: Bladder tumor, greater than 6 cm; and urethral stenosis. PROCEDURE: Urethral dilation, transurethral resection of bladder tumor greater than 6 cm and instillation of intravesical mitomycin C. SURGEON: Dr. Jamie Villasenor. ELECTION WATCHER: None. ANESTHESIA: General anesthesia with laryngeal mask. COMPLICATIONS: None. ESTIMATED BLOOD LOSS: Minimal. SPECIMENS SENT TO PATHOLOGY: Right-sided bladder tumor. DRAINS LEFT IN PLACE: Include an 18 Italian Jesus catheter to gravity drainage with 10 mL of sterile water in the balloon, clamped with intravesical mitomycin C, 40 mg and 40 mL of H2O. FINDINGS: Large right-sided papillary bladder tumor, not involving the ureteral orifice resected down to the level of the muscle with excellent hemostasis, no evidence of bladder perforation and no residual tumor being present. BRIEF HISTORY: Ms. Araiza is a pleasant 47-year-old smoker who I have met recently for evaluation for gross hematuria with questionable bladder lesion on CT scan. Office cystoscopy has demonstrated a papillary mass consistent with urothelial carcinoma. Please see H&P for further details. She is being brought to the operating room today for resection of the tumor and intravesical mitomycin C therapy. Informed consent is present in the chart and reviewed with the patient preoperatively today. Intravenous ciprofloxacin has been provided for antibiotic coverage and SCDs for DVT prophylaxis. DESCRIPTION OF PROCEDURE: The patient was properly identified and brought to the operative suite after identification of appropriate consent on the chart, general anesthesia with laryngeal mask was initiated. The patient was prepped and draped in the standard fashion for this procedure. multimedia specialist-out procedure was followed. Attempts at passing a 26-Italian resectoscope into the bladder met with resistance at the level of a stenotic postmenopausal meatus. This was dilated to a 30-Italian caliber now allowing for easy passage of the resectoscope. Bladder was surveyed in its entirety and both ureteral orifices were noted to be uninvolved by tumor. They were in the normal anatomic location effluxing clear yellow urine. A large papillary right-sided bladder mass was appreciated with no significant satellite lesions or other abnormalities processes for some mild cystitis and inflammation in the region around the tumor. Using a bipolar loop, the tumor was resected down to its base. Vessels at the base were controlled using cautery with the loop cautery and bipolar button, as necessary. Some thinning of the bladder wall was noted without fatou perforation. Fragments of tumor were irrigated free throughout the case. The tumor was noted to be quite significant in size, estimated to be greater than 10 cm in total. After this was complete, the bladder was again carefully inspected and excellent hemostasis was appreciated with no evidence of residual tumor fragments within the bladder or abnormalities of mucosa. Bladder was drained and the resectoscope was removed. An 18 Italian Jesus catheter was placed with 10 mL of sterile water in the balloon. A 40 mg of mitomycin and 40 mL of water were instilled into the bladder and the bladder was clamped. Bladder was to be drained in 2 hours' time. The catheter bag was placed to allow for drainage without exposure to chemotherapy in the postoperative period. Belladonna and opium suppository was provided for additional postoperative analgesia and anesthesia was reversed. The patient was transferred to the recovery room in stable condition. FOLLOWUP CARE: The patient to conclude her course of Bactrim, which she has started already via the Emergency Room. She is provided with postoperative analgesics in the form of Percocet and Pyridium. Outpatient trial of void in a few days as planned and documented in the chart. Outpatient pathology discussion is also confirmed. The patient is instructed to contact our service should she note fevers, chills, nausea, vomiting or other significant difficulties in the postoperative period. Care is discussed postoperatively with the patient and the patient's family. I attest to the content of the Intraoperative Record and any orders documented therein. Any exception s are noted below.
== END 2018-01-21 18:50 | disposition home or self-care (01) ==
LOC: C.ACU 11:44
PROVIDERS: ATTEND Urology
DX: N32.89 Other specified disorders of bladder (principal); N35.9 Urethral stricture, unspecified; N39.0 Urinary tract infection, site not specified; N31.0 Uninhibited neuropathic bladder, not elsewhere classified; Z86.718 Personal history of other venous thrombosis and embolism; Z87.442 Personal history of urinary calculi; Z83.3 Family history of diabetes mellitus; Z84.1 Family history of disorders of kidney and ureter; F17.200 Nicotine dependence, unspecified, uncomplicated; Z91.040 Latex allergy status

== ENCOUNTER 2018-06-28 11:17 | Emergency (ER) | payer OTHER ==
[~2018-06-28] VITALS: Ht 165.1 cm; Wt 77.3 kg
[~2018-06-28 11:17] MED LIST changes: -ATROPINE SULFATE 0.1 MG/ML 5ML SYR IV PRN; -CIPROFLOXACIN / D5W 400 MG IV SCH; -EpHEDrine SULFATE INJ 50 MG/ML AMP IV PRN; -HYDROmorphone INJ 2 MG/ML SYR/VIAL IV PRN; -LACTATED RINGER'S 1000ML 1,000 ML IV SCH; -MITOMYCIN FOR INJ 40 MG in SYRINGE 40 ML IR SCH; -ONDANSETRON INJ 2 MG/ML 2 ML VIAL IV PRN; +OXYC-57 PO; -PHENYLEPHRINE 100MCG/ML 5ML SYR IV PRN; -SULF800T23 PO
[2018-06-28 11:21] VITALS: TEMP 36.3; Ht 165.1 cm; Wt 77.3 kg
[2018-06-28] MEDS ORDERED: IBUP-1050 PO (11:37)
[2018-06-28] MEDS ORDERED: SODIUM CHLORIDE 0.9% 1000ML 1,000 ML IV STA (11:55)
[2018-06-28] MEDS ORDERED: KETOROLAC TROMETHAMINE 30 MG/ML VIAL IV STA (11:55)
[2018-06-28 12:21] LABS: BASO % 0.2 %; BASO ABS # 0.03 K/uL (0-0.2); EOS % 1.3 %; EOS ABS # 0.16 K/uL (0-0.5); HEMOGLOBIN 15.2 g/dL (12.0-16.0); IG# 0.04 K/uL (0.00-0.02); LYMPH % 14.4 %; LYMPH ABS # 1.76 K/uL (1.2-3.4); MEAN CELL VOLUME 99.8 fL (80-100); MEAN PLATELET VOLUME 9.6 fL (7.4-10.4); MONO % 6.8 %; MONO ABS # 0.83 K/uL (0.11-0.59); NEUT ABS # 9.38 K/uL (1.4-6.5); PLATELET COUNT 249 K/uL (130-400); RED CELL DISTRIBUTION WIDTH CV 13.2 % (11.5-14.5); RED CELL DISTRIBUTION WIDTH SD 47.7 fL (36.4-46.3)
[2018-06-28 12:37] LABS: ALBUMIN 3.8 gm/dl (3.4-5.0); CREATININE 0.6 mg/dl (0.60-1.20); POTASSIUM 3.8 mmol/L (3.5-5.1); TOTAL PROTEIN 7.6 gm/dl (6.4-8.2)
--- NOTE | 2018-06-28 13:09 | DIAGNOSTIC IMAGING REPORT ---
ABDOMEN AND PELVIS CT WITHOUT CONTRAST CT DOSE: 877.76 mGycm HISTORY: right flank pain TECHNIQUE: Multiaxial CT images of the abdomen and pelvis were performed without the use of intravenous and oral contrast according to the standard department stone protocol. A dose lowering technique was utilized adhering to the principles of ALARA. COMPARISON STUDY: Abdomen and pelvis CT 01/18/2018. FINDINGS: The lung bases are essentially clear. No pneumoperitoneum. No pneumatosis. No fractures within the visualized osseous structures. Small fat-containing umbilical hernia, unchanged. The unenhanced liver, spleen, pancreas, and adrenal glands are unremarkable. There are 2 small stones within the gallbladder. No gallbladder wall thickening. No retroperitoneal lymphadenopathy. No renal or ureteral stones. No hydronephrosis. The bladder, uterus, and bilateral adnexa are unremarkable. Suboptimal evaluation for bowel pathology due to the lack of intravenous and oral contrast. However, there is no definite bowel wall thickening or obstruction. Normal appendix. Colonic diverticulosis. IMPRESSION: 1. No renal or ureteral stones. No hydronephrosis. 2. Cholelithiasis. No gallbladder wall thickening. 3. No definite bowel wall thickening or obstruction. 4. Normal appendix. 5. Colonic diverticulosis. Electronically signed by: Trae Roy M.D. 06/28/2018 1:07 PM Dictated Date/Time: 06/28/2018 1:01 PM
--- NOTE | 2018-06-28 15:01 | EMERGENCY ROOM VISIT NOTE ---
History First contact with patient: 11:34 Chief Complaint: FLANK PAIN Stated Complaint: PAIN IN RIGHT SIDE AND BACK History of Present Illness The patient is a 48 year old female who presents to the Emergency Room with complaints of right flank pain. The patient states the pain began spontaneously last evening while in bed. There is been no aggravating or alleviating factors. The patient did take Advil without improvement in her symptoms. She does report associated fatigue, but denies any urinary symptoms, diarrhea, constipation, fevers, chills, nausea, vomiting, or abdominal pain. The patient states the pain radiates from the right flank around toward the abdomen, but does not have any specific abdominal pain. She has had pain similar in the past, and was diagnosed with bladder cancer in March of this year. She states she had a tumor which was removed by Dr. Villasenor. She does report a history of kidney stones and gallstones, but denies any cholecystectomy or recent kidney stones. The patient rates her pain 6/10 and describes it as sharp. Review of Systems A complete 10 point review of systems was reviewed with the patient with pertinent positives and negatives as per history of present illness. All else were negative. Past Medical/Surgical History Medical Problems: (1) Acute bronchitis (2) Arm pain, right (3) Asthma (4) Bee sting allergy (5) Cellulitis of left foot (6) Deep venous thrombosis of lower extremity (7) Diabetes (8) Heart disease (9) Hematuria (10) Hx of blood clots (11) Hypertension (12) Lumbago (13) Right lumbar radiculitis (14) Right tennis elbow (15) Tobacco Use Disorder Surgical Problems: (1) Fracture of mandible Family History Blood clots Diabetes mellitus FHx: gallbladder disease FHx: heart disease Hypertension Kidney disease Kidney stones Seizures Social History Smoking Status: Current Every Day Smoker Smokeless Tobacco Use: No Alcohol Use: occasionally Drug Use: none Marital Status: Housing Status: lives with family Occupation Status: employed Current/Historical Medications Scheduled Ibuprofen (Advil), 200 MG PO UD Physical Exam Vital Signs Date Time Temp Pulse Resp B/P (MAP) Pulse Ox O2 Delivery O2 Flow Rate FiO2 06/28/18 15:28 59 20 121/69 98 06/28/18 14:28 59 18 120/78 98 Room Air 06/28/18 12:48 65 20 129/76 94 Room Air 06/28/18 11:21 36.3 88 18 161/81 95 Room Air Physical Exam VITALS: Vitals are noted on the nurse's note and reviewed by myself. Vital signs stable. GENERAL: This is a 48-year-old white female, in no acute distress, nondiaphoretic, well-developed well-nourished. SKIN: The skin was without rashes, erythema, edema, or bruising. There is no tenting of the skin. Capillary reflex less than 2 seconds. HEAD: Normocephalic atraumatic. EARS: External auditory canals clear, tympanic membranes pearly loco without erythema or effusion bilaterally. EYES: Pupils equal round and reactive to light and accommodation. Conjunctivae without injection, sclerae without icterus. Extraocular movements intact. NOSE: Patent, turbinates without inflammation or discharge. No sinus tenderness. MOUTH: Mucous membranes moist. Tonsils are not enlarged. Pharynx without erythema or exudate. Uvula midline. Airway patent. Tongue does not deviate. NECK: Supple without nuchal rigidity. No lymphadenopathy. No thyromegaly. Cervical spine is nontender. No JVD. HEART: Regular rate and rhythm without murmurs gallops or rubs. LUNGS: Clear to auscultation bilaterally without wheezes, rales or rhonchi. No dullness to percussion. No retractions or accessory muscle use. ABDOMEN: Positive bowel sounds x 4. Normal tympanic percussion. Abdomen soft, nontender, without masses or organomegaly. Anderson sign negative. No guarding or rebound tenderness. Positive CVA tenderness on the right. MUSCULOSKELETAL: No muscle atrophy, erythema, or edema noted. Full range of motion without joint tenderness in all extremities. No tenderness to palpation. Normal gait. Strength 5/5 throughout. NEURO: Patient was alert and oriented to person place and time. Normal sensation to light and sharp touch. Deep tendon reflexes 2+ throughout. No focal neurological deficits. Medical Decision & Procedures ER Provider Diagnostic Interpretation: ABDOMEN AND PELVIS CT WITHOUT CONTRAST CT DOSE: 877.76 mGycm HISTORY: right flank pain TECHNIQUE: Multiaxial CT images of the abdomen and pelvis were performed without the use of intravenous and oral contrast according to the standard department stone protocol. A dose lowering technique was utilized adhering to the principles of ALARA. COMPARISON STUDY: Abdomen and pelvis CT 01/18/2018. FINDINGS: The lung bases are essentially clear. No pneumoperitoneum. No pneumatosis. No fractures within the visualized osseous structures. Small fat-containing umbilical hernia, unchanged. The unenhanced liver, spleen, pancreas, and adrenal glands are unremarkable. There are 2 small stones within the gallbladder. No gallbladder wall thickening. No retroperitoneal lymphadenopathy. No renal or ureteral stones. No hydronephrosis. The bladder, uterus, and bilateral adnexa are unremarkable. Suboptimal evaluation for bowel pathology due to the lack of intravenous and oral contrast. However, there is no definite bowel wall thickening or obstruction. Normal appendix. Colonic diverticulosis. IMPRESSION: 1. No renal or ureteral stones. No hydronephrosis. 2. Cholelithiasis. No gallbladder wall thickening. 3. No definite bowel wall thickening or obstruction. 4. Normal appendix. 5. Colonic diverticulosis. Electronically signed by: Trae Roy M.D. 06/28/2018 1:07 PM Dictated Date/Time: 06/28/2018 1:01 PM ABDOMINAL ULTRASOUND, RIGHT UPPER QUADRANT HISTORY: cholelithiasis, RUQ pain. COMPARISON: Abdomen and pelvis CT 06/28/2018. FINDINGS: Pancreas: The pancreatic tail is obscured by overlying bowel gas. The remaining portions of the pancreas are within normal limits. Liver: Unremarkable. Gallbladder: There are few small gallstones. The largest measures 7 mm. No gallbladder wall thickening. CBD: 5 mm. Right kidney: No hydronephrosis. IMPRESSION: Cholelithiasis. No gallbladder wall thickening. Electronically signed by: Trae Roy M.D. 06/28/2018 3:03 PM Dictated Date/Time: 06/28/2018 3:02 PM Laboratory Results 06/28/18 12:00 Red Blood Count 4.61, Mean Corpuscular Volume 99.8, Mean Corpuscular Hemoglobin 33.0, Mean Corpuscular Hemoglobin Concent 33.0, Mean Platelet Volume 9.6, Neutrophils (%) (Auto) 77.0, Lymphocytes (%) (Auto) 14.4, Monocytes (%) (Auto) 6.8, Eosinophils (%) (Auto) 1.3, Basophils (%) (Auto) 0.2, Neutrophils # (Auto) 9.38, Lymphocytes # (Auto) 1.76, Monocytes # (Auto) 0.83, Eosinophils # (Auto) 0.16, Basophils # (Auto) 0.03 06/28/18 12:00 Test 06/28/18 11:40 06/28/18 12:00 Urine Color YELLOW Urine Appearance CLEAR (CLEAR) Urine pH 6.5 (4.5-7.5) Urine Specific [place] 1.005 (1.000-1.030) Urine Protein NEG (NEG) Urine Glucose (UA) NEG (NEG) Urine Ketones NEG (NEG) Urine Occult Blood NEG (NEG) Urine Nitrite NEG (NEG) Urine Bilirubin NEG (NEG) Urine Urobilinogen NEG (NEG) Urine Leukocyte Esterase NEG (NEG) White Blood Count 12.20 K/uL (4.8-10.8) Red Blood Count 4.61 M/uL (4.2-5.4) Hemoglobin 15.2 g/dL (12.0-16.0) Hematocrit 46.0 % (37-47) Mean Corpuscular Volume 99.8 fL (80-100) Mean Corpuscular Hemoglobin 33.0 pg (25-34) Mean Corpuscular Hemoglobin Concent 33.0 g/dl (32-36) Platelet Count 249 K/uL (130-400) Mean Platelet Volume 9.6 fL (7.4-10.4) Neutrophils (%) (Auto) 77.0 % Lymphocytes (%) (Auto) 14.4 % Monocytes (%) (Auto) 6.8 % Eosinophils (%) (Auto) 1.3 % Basophils (%) (Auto) 0.2 % Neutrophils # (Auto) 9.38 K/uL (1.4-6.5) Lymphocytes # (Auto) 1.76 K/uL (1.2-3.4) Monocytes # (Auto) 0.83 K/uL (0.11-0.59) Eosinophils # (Auto) 0.16 K/uL (0-0.5) Basophils # (Auto) 0.03 K/uL (0-0.2) RDW Standard Deviation 47.7 fL (36.4-46.3) RDW Coefficient of Variation 13.2 % (11.5-14.5) Immature Granulocyte % (Auto) 0.3 % Immature Granulocyte # (Auto) 0.04 K/uL (0.00-0.02) Anion Gap 7.0 mmol/L (3-11) Est Creatinine Clear Calc Drug Dose 117.9 ml/min Estimated GFR () 124.9 Estimated GFR (Non- 107.8 BUN/Creatinine Ratio 17.7 (10-20) Calcium Level 9.0 mg/dl (8.5-10.1) Total Bilirubin 0.6 mg/dl (0.2-1) Aspartate Amino Transf (AST/SGOT) 17 U/L (15-37) Alanine Aminotransferase (ALT/SGPT) 22 U/L (12-78) Alkaline Phosphatase 94 U/L (45-117) Total Protein 7.6 gm/dl (6.4-8.2) Albumin 3.8 gm/dl (3.4-5.0) Globulin 3.8 gm/dl (2.5-4.0) Albumin/Globulin Ratio 1.0 (0.9-2) Medications Administered Medications (Trade) Dose Ordered Sig/Tesfaye Route Start Time Stop Time Status Last Admin Dose Admin Sodium Chloride 1,000 ml @ 999 mls/hr Q1H1M STAT IV 06/28/18 11:55 06/28/18 12:55 DC 06/28/18 12:05 999 MLS/HR Ketorolac Tromethamine (Toradol Inj) 30 mg NOW STAT IV 06/28/18 11:55 06/28/18 11:58 DC 06/28/18 12:06 30 MG ED Course The patient was seen and evaluated as above. IV access obtained, labs drawn. The patient was given 1 L normal saline solution and [address] scan performed and reviewed by myself and radiologist as above. Labs reviewed by myself. I discussed the case with my attending. I discussed the findings with the patient at bedside. She was reassessed and had significant improvement in her symptoms. At this point due to the gallstones and no acute other findings or causes for the patient's symptoms, I did recommend an abdominal ultrasound to rule out acute cholecystitis. The patient was agreeable. Ultrasound performed and reviewed by myself and radiologist as above. She continues to feel better. Discharge instructions reviewed, the patient was discharged home in good condition. Medical Decision This is a 48-year-old female patient presents to the emergency department complaining of right flank pain. The pain radiates around to the side and is reproducible on palpation. There is CVA tenderness, but negative Anderson sign. On examination, the patient is extremely tender, however her symptoms were very responsive to anti-inflammatories. Laboratory workup revealed a mild leukocytosis at 12,000. No anemia or thrombocytopenia. The patient's renal and hepatic function testing was normal. Electrolytes were normal. Urinalysis was negative for blood or signs of infection. CT scan performed initially due to concerns regarding the patient's history of bladder cancer with similar symptoms. No suspicious findings noted, however the CT scan did note some mild cholelithiasis. A right upper quadrant ultrasound was performed at this time due to the negative workup and patient's symptoms which did not show any evidence for acute cholecystitis. I suspect a possible musculoskeletal etiology versus zoster versus possible renal etiology related to the patient's history of bladder cancer, as her workup here in the emergency department was overall negative. I encouraged the patient to treat her symptoms with OTC analgesics and anti-inflammatory medications and get plenty of rest this week. She was encouraged to follow-up outpatient with her PCP and urologist. Patient verbalized agreement and understanding. All questions as to patient's satisfaction prior to discharge. Etiologies such as varicella-zoster, appendicitis, diverticulitis, obstruction , inflammatory bowel disease, renal colic, PUD, biliary pathology, pancreatitis , mesenteric ischemia, aortic pathology, infections, genitourinary, UTI, perforated viscus, as well as others were entertained. The chart was completed utilizing [employer] Speech voice recognition software. Grammatical errors, random word insertions, pronoun errors, and incomplete sentences are an occasional consequence of this system due to software limitations, ambient noise, and hardware issues. Any formal questions or concerns about the content, text, or information contained within the body of this dictation should be directly addressed to the provider for clarification. Medication Reconcilliation Current Medication List: was personally reviewed by me Blood Pressure Screening Patient's blood pressure: Normal blood pressure Impression Primary Impression: Right flank pain Departure Information Dispostion Home / Self-Care Condition GOOD Referrals No Doctor, Assigned (PCP) Patient Instructions ED Flank Pain Uncertain Cause, My [facility] Additional Instructions You were seen in the emergency department today for right flank pain. As discussed, labs and imaging did not reveal any acute cause for your symptoms. Ibuprofen(Motrin, Advil) may be used for fever or pain. Use 600mg every six hours as needed. Take with food. Avoid using more than 2400mg in a 24 hour period. Do not use 2400mg per day for more than three consecutive days without physician direction. Prolonged inappropriate use can lead to stomach upset or ulcers. (AND/OR) Acetaminophen(Tylenol) may be used for fever or pain. Use 1000mg every six hours as needed. Avoid using more than 3000mg in a 24 hour period. Drink plenty of fluids and stay well-hydrated. Follow-up with your primary care provider as well as urologist this week. Return to the emergency department for any significantly worsening pain, fever, chills, nausea, vomiting, headache, dizziness, or other concerning symptoms.
--- NOTE | 2018-06-28 15:04 | DIAGNOSTIC IMAGING REPORT ---
ABDOMINAL ULTRASOUND, RIGHT UPPER QUADRANT HISTORY: cholelithiasis, RUQ pain. COMPARISON: Abdomen and pelvis CT 06/28/2018. FINDINGS: Pancreas: The pancreatic tail is obscured by overlying bowel gas. The remaining portions of the pancreas are within normal limits. Liver: Unremarkable. Gallbladder: There are few small gallstones. The largest measures 7 mm. No gallbladder wall thickening. CBD: 5 mm. Right kidney: No hydronephrosis. IMPRESSION: Cholelithiasis. No gallbladder wall thickening. Electronically signed by: Trae Roy M.D. 06/28/2018 3:03 PM Dictated Date/Time: 06/28/2018 3:02 PM
[2018-06-28 15:28] VITALS: BP 121/69; PULSE 59; O2SAT 98
== END 2018-06-28 15:29 | disposition home or self-care (01) ==
LOC: C.EDB 11:18 → C.EDC 15:29
DX: R10.84 Generalized abdominal pain (principal); J45.909 Unspecified asthma, uncomplicated; E11.9 Type 2 diabetes mellitus without complications; I51.9 Heart disease, unspecified; I10 Essential (primary) hypertension; M54.16 Radiculopathy, lumbar region; F17.200 Nicotine dependence, unspecified, uncomplicated